=== PATIENT | female | born 1940 | race Asian ===

== ENCOUNTER 2016-09-25 13:52 | Emergency (ER) | payer SELFPAY ==
[2016-09-25 16:04] LABS: BASOPHIL % 0.3 % (0-2); PLATELET COUNT 311 x10^3mcL (130-400); RED CELL DISTRIBUTION WIDTH 11.6 % (11.5-14.5)
[2016-09-25] MEDS ORDERED: METFORMIN HCL1000 MG PO (16:04)
[2016-09-25] MEDS ORDERED: GLUCOTROL10 MG PO (16:04)
[2016-09-25] MEDS ORDERED: KLOR-CON 1010 MEQ PO (16:05)
[2016-09-25] MEDS ORDERED: ADULT LOW DOSE81 MG PO (16:05)
[2016-09-25] MEDS ORDERED: PRA40 PO (16:05)
[2016-09-25] MEDS ORDERED: METOPROLOL (16:05)
[2016-09-25 16:25] LABS: ALBUMIN 4.3 g/dL (3.4-5.0); ALKALINE PHOSPHATASE 62 U/L (46-116); ALT/SGPT 23 U/L (14-59); AST/SGOT 17 U/L (15-37); BILIRUBIN TOTAL 0.31 mg/dL (0.20-1.00); CALCIUM 9.4 mg/dL (8.5-10.1); CARBON DIOXIDE 24.4 mmol/L (21-32); CHLORIDE SERUM 89 mmol/L (98-107); CREATININE SERUM 0.8 mg/dL (0.6-1.0); GLUCOSE SERUM 214 mg/dL (74-106); POTASSIUM SERUM 4.2 mmol/L (3.5-5.1); T4(THYROXINE) 9.4 ug/dL (4.7-13.3)
[2016-09-25 16:32] LABS: SODIUM SERUM 124 mmol/L (136-145); TOTAL PROTEIN, SERUM 8.4 g/dL (6.4-8.2)
[2016-09-25 16:51] LABS: microscopic required? NO
[2016-09-25 17:02] LABS: UA SPECIFIC GRAVITY <=1.005 (1.005-1.035); urine erythrocyte NEGATIVE (NEGATIVE)
[2016-09-25 18:08] LABS: AMPHETAMINE QUAL UR NONE DETECTED (NEG <=1000)
[2016-09-25 18:10] LABS: PHOSPHOROUS 3.9 mg/dL (2.5-4.9)
[2016-09-25 18:13] LABS: MAGNESIUM 1.4 mg/dL (1.8-2.4)
[2016-09-25 18:22] LABS: FREE T4 1.18 ng/dL (0.76-1.46); FREE THYROXINE INDEX 2.8 ug/dL (1.4-4.5); T4(THYROXINE) 8.9 ug/dL (4.7-13.3)
[2016-09-25 18:28] LABS: CHOLESTEROL/HDL RATIO 2.7
[2016-09-25 19:14] LABS: T3 TOTAL 0.82 ng/mL
[2016-09-26 05:49] LABS: BASOPHIL % 0.1 % (0-2); PLATELET COUNT 311 x10^3mcL (130-400)
[2016-09-26 06:05] LABS: CALCIUM 8.4 mg/dL (8.5-10.1); CARBON DIOXIDE 25.7 mmol/L (21-32); CHLORIDE SERUM 103 mmol/L (98-107); CREATININE SERUM 0.8 mg/dL (0.6-1.0); GLUCOSE SERUM 200 mg/dL (74-106); PHOSPHOROUS 2.7 mg/dL (2.5-4.9); POTASSIUM SERUM 4.3 mmol/L (3.5-5.1); SODIUM SERUM 139 mmol/L (136-145)
[2016-09-26 10:13] VITALS: BP 144/71
== END 2016-09-26 10:13 | disposition short-term general hospital (02) ==
LOC: ED 13:52
PROVIDERS: Emergency Medicine; Family Medicine
DX: E87.1 Hypo-osmolality and hyponatremia (principal); R74.0 Nonspecific elevation of levels of transaminase and lactic acid dehydrogenase [LDH]; I10 Essential (primary) hypertension; E11.9 Type 2 diabetes mellitus without complications; E78.00 Pure hypercholesterolemia, unspecified; I45.10 Unspecified right bundle-branch block
CPT/HCPCS: 80307; 82962; 83880; 84439; J1815; J1956; J2930; J3475; J3490; J7030; J7040; J7613; J7620; J7626; J7644; Q0092

== ENCOUNTER 2016-10-05 15:07 | Emergency (ER) | payer SELFPAY ==
[~2016-10-05] VITALS: Ht 162.6 cm; Wt 53.5 kg
[~2016-10-05 15:07] MED LIST: ADULT LOW DOSE81 MG PO; GLUCOTROL10 MG PO; KLOR-CON 1010 MEQ PO; METFORMIN HCL1000 MG PO; METOPROLOL; PRA40 PO
[2016-10-05 18:58] LABS: BASOPHIL % 0.2 % (0-2); PLATELET COUNT 332 x10^3mcL (130-400); RED CELL DISTRIBUTION WIDTH 11.5 % (11.5-14.5)
[2016-10-05 19:08] LABS: CALCIUM 9.1 mg/dL (8.5-10.1); CARBON DIOXIDE 28.9 mmol/L (21-32); CHLORIDE SERUM 89 mmol/L (98-107); CREATININE SERUM 0.6 mg/dL (0.6-1.0); GLUCOSE SERUM 132 mg/dL (74-106); SODIUM SERUM 126 mmol/L (136-145)
[2016-10-05 19:14] LABS: ALBUMIN 4.2 g/dL (3.4-5.0); ALKALINE PHOSPHATASE 54 U/L (46-116); ALT/SGPT 51 U/L (14-59); AST/SGOT 28 U/L (15-37); BILIRUBIN TOTAL 0.3 mg/dL (0.20-1.00); CHOLESTEROL 163 mg/dL (<200); LIPASE 240 IU/L (73-393); TOTAL PROTEIN, SERUM 7.6 g/dL (6.4-8.2); TRIGLYCERIDES 120 mg/dL (<150)
[2016-10-05 19:15] LABS: CHOLESTEROL/HDL RATIO 2.2; HDL CHOLESTEROL 73 mg/dL (40-60)
[2016-10-05 19:29] LABS: T3 TOTAL 0.7 ng/mL
[2016-10-05 19:37] LABS: FREE T4 1.28 ng/dL (0.76-1.46); FREE THYROXINE INDEX 3.5 ug/dL (1.4-4.5); T4(THYROXINE) 9.1 ug/dL (4.7-13.3)
[2016-10-05 20:46] VITALS: BP 130/76
== END 2016-10-05 20:46 | disposition home or self-care (01) ==
LOC: ED 15:07
PROVIDERS: Specialist
DX: J40 Bronchitis, not specified as acute or chronic (principal); G47.00 Insomnia, unspecified; R30.9 Painful micturition, unspecified
CPT/HCPCS: 82962; 83880; 84439; J7030; Q0092